=== PATIENT | male | born 1980 | race Caucasian/White ===

== ENCOUNTER 2019-08-30 16:50 | Emergency (ER) | payer SELFPAY ==
[2019-08-30 16:56] VITALS: BP 145/82
[2019-08-30] MEDS ORDERED: SULFAMETHOXAZOLE/TRIMETHOPRIM 800-160 MG TABLET PO ONE (17:03)
[2019-08-30] MEDS ORDERED: HYDROCODONE/ACETAMINOPHEN 5-325 MG TABLET PO ONE (17:03)
[2019-08-30] MEDS ORDERED: CEPHALEXIN 500 MG CAPSULE PO ONE (17:03)
--- NOTE | 2019-08-30 17:08 | ER Document Report ---
HPI - HPI Patient complains to provider of: Facial abscess Time Seen by Provider: 08/30/19 16:56 Onset/Duration: Worse Quality of pain: Sharp Pain Level: 2 Context: Patient presents with left side facial swelling for the past 3 days. Patient denies any fever. Patient reports purulent drainage from the wound. Patient reports a history of similar problem in the past although is uncertain if he may have had MRSA. 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 Lives with: Family Family History: Reviewed & Not Pertinent Patient has homicidal ideation: No - Medical History Medical History: Negative Surgical Hx: Negative Vertical Provider Document - CONSTITUTIONAL Agree With Documented VS: Yes Exam Limitations: No Limitations General Appearance: WD/WN, No Apparent Distress - HEENT HEENT: Atraumatic, Normocephalic Notes: Facial swelling to the left lower cheek area, spontaneously draining small amount of purulent material, area exquisitely tender to touch - NECK Neck: Normal Inspection, Supple - RESPIRATORY Respiratory: Breath Sounds Normal, No Respiratory Distress - CARDIOVASCULAR Cardiovascular: Regular Rate, Regular Rhythm - MUSCULOSKELETAL/EXTREMETIES Musculoskeletal/Extremeties: MAEW - NEURO Level of Consciousness: Awake, Alert, Appropriate Motor/Sensory: No Motor Deficit - DERM Integumentary: Warm, Dry, Abscess - Left lower cheek area Course - Vital Signs Vital signs: Temp Pulse Resp BP Pulse Ox 98.4 F 92 18 145/82 H 100 08/30/19 16:57 08/30/19 16:54 08/30/19 16:54 08/30/19 16:54 08/30/19 16:54 Procedures - Incision and Drainage Left Face Type: Simple Anesthetic type: 1% Lidocaine Blade size: 11 I&D procedure: Betadine prep applied Incision Method: Incision made by scalpel Amount/type of drainage: large amount of purulent drainage Adult Head Front/Back picture: 1 - abscess Discharge - Discharge Clinical Impression: Facial abscess, Encounter for incision and drainage procedure Condition: Stable Disposition: HOME, SELF-CARE Instructions: Abscess ([facility]), Cephalexin ([facility]), Oral Narcotic Medication ([facility]), Post Incision and Drainage, Trimethoprim-Sulfa ([facility]) Additional Instructions: Return immediately for any new or worsening symptoms Followup with your primary care provider, call tomorrow to make a followup appointment Wound culture is pending, we will call if you need any different treatment Prescriptions: Sulfamethoxazole/Trimethoprim [Bactrim Ds Tablet] 1 each PO BID #20 tablet Cephalexin Monohydrate [Keflex 500 mg Capsule] 500 mg PO Q6H 5 Days #20 capsule Hydrocodone/Acetaminophen [[place] 5-325 mg Tablet] 1 tab PO Q6 PRN #10 tablet PRN Reason: Referrals: [facility] [Provider Group] - Follow up as needed
== END 2019-08-30 17:54 | disposition home or self-care (01) ==
LOC: ER 16:50
DX: L02.01 Cutaneous abscess of face (principal); F17.200 Nicotine dependence, unspecified, uncomplicated
CPT/HCPCS: 87070; 87077; 87186; 87205; 99283